=== PATIENT | female | born 1940 | race African-American/Black ===

== ENCOUNTER 2019-02-17 10:51 | Observation (INO) ==
[2019-02-17] MEDS ORDERED: ONDANSETRON 4 MG/2 ML VIAL IV STA (11:18)
[2019-02-17 11:37] LABS: Basophils # 0.1 10*3/uL (0.0-0.2); Basophils % 0.5 % (0.0-0.8); Eosinophils # 0.1 10*3/uL (0.0-0.87); Eosinophils % 1.2 % (0.00-10.9); Hematocrit 36.1 VOL% (35.7-47.0); Hemoglobin 11.9 GM/DL (12.0-16.0); Immature Granulocytes % 0.3 %; Immature Granulocytes Absolute 0.03 #; Lymphocytes % 20.8 % (21.3-54.2); Mean Corpuscular Volume 80.9 FL (87-102); Mean Platelet Volume 13.3 FL (9.6-12.0); Monocytes % 6.3 % (1.7-12.7); Neutrophils % 70.9 % (38.7-73.9); Platelet Count 147 T/CUMM (130-400); Red Blood Count 4.46 MC/CUMM (3.8-5.5); White Blood Count 9.7 T/CUMM (4-12)
[2019-02-17 11:43] LABS: INR 0.9; PT Patient Result 10.2 SECS (9.6-12.2)
[2019-02-17 11:56] LABS: Albumin 3.8 G/DL (3.4-5.0); Bilirubin,Total 0.4 MG/DL (0.2-1.0); Calcium 9.6 MG/DL (8.5-10.1); Osmolality,Calculated 286.1 MOS/KG (273-304); Total Protein 7.6 G/DL (6.4-8.3)
[2019-02-17 12:04] LABS: Giant Platelets Few; Platelet Estimate Adequate
[2019-02-17 12:05] LABS: Anisocytosis 1+
[2019-02-17] MEDS ORDERED: NITROGLYCERIN SL 0.4 MG TABLET SL PRN (13:43)
[2019-02-17] MEDS ORDERED: PREGABALIN 50 MG CAPSULE PO PRN (13:43)
[2019-02-17] MEDS ORDERED: ONDANSETRON 4 MG/2 ML VIAL IV PRN (13:45)
[2019-02-17] MEDS ORDERED: GLUCAGON 1 MG VIAL IM PRN (13:59)
[2019-02-17] MEDS ORDERED: DEXTROSE 50% 25 GM/50 ML VIAL IV PRN (13:59)
[2019-02-17] MEDS ORDERED: LEVOFLOXACIN INJ 500 MG in PREMIX 1 EACH IV SCH (16:00)
[2019-02-17] MEDS: metroNIDAZOLE INJ 500 MG in PREMIX 1 EACH IV SCH ×2 (16:11→22:31)
[2019-02-17] MEDS: INSULIN REGULAR 100 UNIT/ML SUBCUT SCH ×2 (18:16→21:10)
[2019-02-17 18:48] LABS: Hematocrit 34.4 VOL% (35.7-47.0); Hemoglobin 11.3 GM/DL (12.0-16.0)
[2019-02-17] MEDS ORDERED: FUROSEMIDE 40 MG TABLET PO SCH (20:00)
[2019-02-17] MEDS ORDERED: AMITRIPTYLINE 25 MG TABLET PO SCH (21:00)
[2019-02-17] MEDS: metFORMIN 500 MG TABLET PO SCH (21:13)
[2019-02-18 00:53] LABS: Hematocrit 34.4 VOL% (35.7-47.0); Hemoglobin 11.3 GM/DL (12.0-16.0)
[2019-02-18] MEDS: metroNIDAZOLE INJ 500 MG in PREMIX 1 EACH IV SCH ×2 (06:00→15:07)
[2019-02-18 06:05] LABS: Basophils # 0.1 10*3/uL (0.0-0.2); Basophils % 0.6 % (0.0-0.8); Eosinophils # 0.3 10*3/uL (0.0-0.87); Eosinophils % 3.3 % (0.00-10.9); Hematocrit 34.2 VOL% (35.7-47.0); Hemoglobin 11.3 GM/DL (12.0-16.0); Immature Granulocytes % 0.2 %; Immature Granulocytes Absolute 0.02 #; Lymphocytes # 2.3 10*3/uL (1.4-4.0); Lymphocytes % 26.9 % (21.3-54.2); Mean Corpuscular Volume 80.3 FL (87-102); Mean Platelet Volume 13.2 FL (9.6-12.0); Platelet Count 153 T/CUMM (130-400); Red Blood Count 4.26 MC/CUMM (3.8-5.5); White Blood Count 8.5 T/CUMM (4-12)
[2019-02-18 06:21] LABS: Calcium 9.1 MG/DL (8.5-10.1); Osmolality,Calculated 281.3 MOS/KG (273-304)
[2019-02-18] MEDS ORDERED: LEVOTHYROXINE 88 MCG TABLET PO SCH (06:30)
[2019-02-18] MEDS ORDERED: SODIUM CHLORIDE 0.9% 1,000 ML IV SCH (08:00)
[2019-02-18] MEDS: INSULIN REGULAR 100 UNIT/ML SUBCUT SCH ×3 (08:56→16:32)
[2019-02-18] MEDS ORDERED: LISINOPRIL 20 MG TABLET PO SCH (09:00)
[2019-02-18] MEDS ORDERED: ATENOLOL 25 MG TABLET PO SCH (09:00)
[2019-02-18] MEDS ORDERED: amLODIPine 5 MG TABLET PO SCH (09:00)
[2019-02-18] MEDS ORDERED: POTASSIUM CHLORIDE 20 MEQ TABLET PO SCH (09:00)
[2019-02-18] MEDS ORDERED: PANTOPRAZOLE 40 MG VIAL IV SCH (09:00)
[2019-02-18] MEDS: metFORMIN 500 MG TABLET PO SCH (09:30)
[2019-02-18 16:25] VITALS: BP 119/56
== END 2019-02-18 19:16 | disposition home or self-care (01) ==
LOC: N.ED 10:51 → N.EDINP 10:51 → N.2W 14:16
PROVIDERS: ADMIT Hospitalist; ATTEND Hospitalist